=== PATIENT | male | born 1990 | race Caucasian/White ===

== ENCOUNTER 2020-05-23 11:26 | Emergency (ER) | payer OTHER, SELFPAY ==
--- NOTE | ~2020-05-23 | XR_ITS ---
EXAMINATION: XR chest 2V 05/23/2020 12:57 INDICATION: Irregular breathing. Hypertension. Smoking. PROCEDURE: 2 view chest COMPARISON: 06/26/2012 FINDINGS: The lungs are clear. The cardiomediastinal silhouette is within normal limits. There are no pleural effusions. There is no pneumothorax suspected. IMPRESSION: 1: NO ACUTE CARDIOPULMONARY DISEASE. Reviewed, dictated and finalized at location A.
[2020-05-23 11:45] VITALS: BP 135/80; PULSE 80; RESP 18; TEMP 36.1; O2SAT 99
--- NOTE | 2020-05-23 14:04 | ED.GENADULT ---
HPI - General Adult General Chief complaint: Unspecified <Diaz Valdez PA-C - Last Filed: 05/23/20 14:11> Stated complaint: irregular breathing <Diaz Valdez PA-C - Last Filed: 05/23/20 14:11> Time Seen by Provider: 05/23/20 12:28 <Diaz Valdez PA-C - Last Filed: 05/23/20 14:11> Source: patient <MICHELLE Blunt Last Filed: 05/23/20 14:11> Mode of arrival: ambulatory <MICHELLE Blunt Last Filed: 05/23/20 14:11> Limitations: no limitations <Diaz Valdez PA-C - Last Filed: 05/23/20 14:11> History of Present Illness HPI narrative: Patient presents with chief complaint of feeling as if his breathing may be off. He states that the feelings began yesterday. He denies short of breath, wheezing, chest pain, pain with inspiration or expiration, cough. Patient states he had asthma symptoms as a child but has not had any development. Patient denies smoking. Patient denies fever, chills, nausea, vomiting, cough, dizziness, syncope, inability to take a deep breath. Patient states that he felt he should come to the emergency department to be checked out. <Daiz Valdez PA-C - Last Filed: 05/23/20 14:11> Related Data Home medications: Home Medications Medication Instructions Recorded Confirmed No Home Medications 05/23/20 05/23/20 <Diaz Valdez PA-C - Last Filed: 05/23/20 14:11> Allergies/adverse reactions: Allergies Allergy/AdvReac Type Severity Reaction Status Date / Time No Known Allergies Allergy Verified 05/23/20 12:26 <Diaz Valdez PA-C - Last Filed: 05/23/20 14:11> Review of Systems Review of Systems: Narrative: CONSTITUTIONAL: Denies fever, chills, or sweats. EYES: Denies visual changes, redness, or discharge. ENT: Denies rhinorrhea, congestion, sore throat, or otalgia. CARDIOVASCULAR: Denies chest pain, palpitations, or edema. RESPIRATORY: Reports irregular breathing denies cough or dyspnea. GASTROINTESTINAL: Denies abdominal pain, nausea, vomiting, or diarrhea. GENITOURINARY: Denies dysuria or hematuria. SKIN: Denies rash or itching. MUSCULOSKELETAL: Denies back pain, joint pain, or myalgia. NEUROLOGIC: Denies headache, numbness, dizziness, or weakness. PSYCHIATRIC: Denies anxiety or depression. <Diaz Valdez PA-C - Last Filed: 05/23/20 14:11> PMFSH Social History Social History: Social History Gender identity (if verbalized by the patient): Male <Diaz Valdez PA-C - Last Filed: 05/23/20 14:11> Exam Narrative: Exam Narrative: GENERAL: Well-appearing, well-nourished, and in no acute distress. HEAD: Normocephalic, atraumatic. EYES: PERRLA and EOMI. NECK: Supple. No adenopathy or masses. Motion intact. CHEST: Clear to auscultation. No respiratory distress. No wheezes rales or rhonchi. Speech clear and steady. Patient does not have any adventitious lung sounds. There is no cough. Patient's respirations are normal and steady. He is not in respiratory distress or discomfort with breathing. No irregularities noted on lung exam. HEART: Regular rate and rhythm. No murmur heard. Normal peripheral pulses. EXTREMITIES: Normal range of motion. No edema. SKIN: Warm, dry, no rash. NEURO: No focal deficits. Alert and oriented x3. PSYCH: Normal mood and affect. <Diaz Valdez PA-C - Last Filed: 05/23/20 14:11> Course Vital Signs Vital signs: Vital Signs Temperature 36.1 C L 05/23/20 11:45 Pulse Rate 80 05/23/20 11:45 Respiratory Rate 18 05/23/20 11:45 Blood Pressure 135/80 05/23/20 11:45 Pulse Oximetry 99 05/23/20 11:45 Temperature 36.1 C L 05/23/20 11:45 Pulse Rate 72 05/23/20 14:27 Respiratory Rate 18 05/23/20 14:27 Blood Pressure 122/78 05/23/20 14:27 Pulse Oximetry 99 05/23/20 14:27 <Diaz Valdez PA-C - Last Filed: 05/23/20 14:11> Vital Signs Temperature 36.1 C L 05/23/20 11:45 Pulse Rate 80 05/23/20 11:45 Respiratory Rate 1
[2020-05-23 14:27] VITALS: BP 122/78; PULSE 72; RESP 18; O2SAT 99
== END 2020-05-23 14:28 | disposition home or self-care (01) ==
PROVIDERS: Emergency Provider Emergency Medicine
DX: Z04.89 Encounter for examination and observation for other specified reasons (principal)
CPT/HCPCS: 71046; 99283